=== PATIENT | female | born 1940 | race Caucasian/White ===

== ENCOUNTER 2021-12-05 16:00 | Outpatient (RCR) | payer MEDICARE, BC, SELFPAY ==
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
--- NOTE | 2021-12-02 08:40 | PCPTNOTE ---
Patient called & cancelled toady's and the rest of her scheduled appointment this date, stating she is feeling much better, doesn't feel she needs anymore therapy at this time.
--- NOTE | 2021-12-06 16:25 | BUPTOPDC ---
Assessment and note entered by Peggy Brasher PT Evaluation Information Assessment Status Discharge Subjective Information Reports resolution of vertigo Reported Pain Level Pain Score 0: Self Report Assessment PT Clinical Summary Pt reports resolution of vertigo symptoms. Initially pt discharged herself from therapy stating she was better and didn't need therapy any longer. PT called pt and pt agreed to come to final appointment for discharge testing, final HEP , and case wrap up. Pt reports cont R sided neck discomfort but that she is doing her exercises and using a massager for this. R Johnathon performed in clinic without symptoms and pt demonstrated R Johnathon with verbal cues from therapist. Print out of Johnathon instructions provided to pt and pt encouraged to return to therapy if she has a return of her symptoms or her neck discomfort returns/increases. Plan of Care Interventions Neuro Re-education
== END 2021-12-10 09:46 | disposition home or self-care (01) ==
LOC: ANHPT 16:00
PROVIDERS: PCP Internal Medicine; Visit Provider Otolaryngology
DX: R42 Dizziness and giddiness (principal)
CPT/HCPCS: 97110; 97112; 97140; 97161

== ENCOUNTER 2022-01-13 09:53 | Emergency (ER) | payer MEDICARE, BC, SELFPAY ==
--- NOTE | ~2022-01-13 | XR_ITS ---
EXAMINATION: XR chest 2V DATE: 01/13/2022 10:23 INDICATION: Shortness of breath and cough. TECHNIQUE: Frontal and lateral views of the chest were obtained. COMPARISON: Chest 2 views 07/02/2017, CT abdomen 01/13/2006 FINDINGS: Again seen is chronic lucency overlying the right mid and upper lung zones which may be sec ondary to chest wall asymmetry. No pneumonia, pleural effusion, or pneumothorax. The heart size is no rmal. There are surgical clips in right axilla. IMPRESSION: 1. No acute cardiopulmonary disease. Reviewed, dictated and finalized at location A.
[2022-01-13 10:01] VITALS: BP 186/73; PULSE 84; RESP 19; TEMP 37.4; O2SAT 97
--- NOTE | 2022-01-13 10:07 | ECG_ITS ---
Measurements Intervals [place] Rate: 86 P: 23 IA: 252 QRS: 6 QRSD: 84 T: -12 QT: 352 QTc: 421 Interpretive Statements SINUS RHYTHM WITH FIRST DEGREE AV BLOCK NONSPECIFIC ST & T-WAVE ABNORMALITY NO PREVIOUS ECG AVAILABLE FOR COMPARISON Electronically Signed On 01-13-2022 12:56:32 CDT by Aldair Albert M.D.
[2022-01-13 10:12] VITALS: PULSE 88; O2SAT 98
[2022-01-13 10:13] VITALS: O2SAT 97
--- NOTE | 2022-01-13 11:37 | ED.GENADULT ---
HPI - General Adult General Chief complaint: Shortness of Breath/Dyspnea Stated complaint: sob/cough Time Seen by Provider: 01/13/22 10:29 History of Present Illness HPI narrative: This is an 81-year-old female presenting ED for difficulty breathing. Patient has had a cough, sore throat, and some chest pain the last 2 days. She also had a cough that was productive of pink sputum which is what made her come to the ED. She describes the chest pain as an achy pain over the center of her chest, this nonradiating, minor in intensity and comes and goes. She has never experienced pain like this before there are exacerbating or alleviating factors. Occurs primarily when she coughs. She is not currently experiencing chest pain. Is not associated with diaphoresis, vomiting or exertion. Patient is vaccinated against COVID was not vaccinated against flu. She denies sick contacts at home. She denies nausea vomiting or diarrhea. Related Data Allergies Allergy/AdvReac Type Severity Reaction Status Date / Time No Known Allergies Allergy Mild Unverified 01/13/22 10:14 Review of Systems Review of Systems: CONSTITUTIONAL: Denies night sweats. EYES: No eye pain ENT: Denies rhinorrhea CARDIOVASCULAR: Denies palpitations RESPIRATORY: Denies hemoptysis GASTROINTESTINAL: Denies hematemesis GENITOURINARY: Denies hematuria. SKIN: Denies rash MUSCULOSKELETAL: Denies myalgia. NEUROLOGIC: Denies weakness. PSYCHIATRIC: Denies delusions [facility] Family History Family History Sibling Carcinoma of colon Family history of heart disease in male family member before age 55 Father Family history of heart disease in male family member before age 55 Other Family history of cardiovascular disease Family history of malignant neoplasm of male breast Social History Social History (Updated 01/13/22 @ 11:39 by Matthew Roberts MD) Social History: Denies alcohol cigarettes or drug use Smoking end date: 03/16/81 Alcohol intake: current Exam Narrative: APPEARANCE: No apparent distress. Head atraumatic. EYES: PERRLA/EOMI, NOSE: Normal no drainage NECK: Supple, Trachea midline RESPIRATORY: CTAB, No increased work of breathing. CARDIOVASCULAR: S1S2 appreciated, no peripheral edema ABDOMINAL: Soft, nontender, nondistended, MUSCULOSKELETAl: No obvious deformities NEURO: Alert. Moving 4/4 extremities SKIN:: Warm, dry. Normal color PSYCHIATRIC: Normal affect Course Vital Signs Vital signs: Vital Signs Temperature 99.3 F 01/13/22 10:01 Pulse Rate 84 01/13/22 10:01 Respiratory Rate 19 01/13/22 10:01 Blood Pressure 186/73 H 01/13/22 10:01 Pulse Oximetry 97 01/13/22 10:01 Oxygen Delivery Room Air 01/13/22 10:01 Temperature 99.3 F 01/13/22 10:01 Pulse Rate 84 01/13/22 12:28 Respiratory Rate 18 01/13/22 12:28 Blood Pressure 174/87 H 01/13/22 12:28 Pulse Oximetry 99 01/13/22 12:28 Oxygen Delivery Room Air 01/13/22 10:13 Medical Decision Making MDM Narrative Medical decision making narrative: This is a 81-year-old female presenting with a cough that is with productive pink sputum. Differential includes bronchitis, new onset heart failure, viral syndrome. Laboratory studies EKG and chest x-ray been ordered. EKG interpretation: Rhythm [sinus], Rate 86, Le[place] -[normal], ID -[normal], QRS [narrow], QTC [normal], T waves -[negative for concerning inversions], ST Segments - [Negative for concerning elevations] Final interpretations: [Normal Sinus Rhythm] chest x-ray was interpreted as no acute cardiopulmonary process. laboratory studies were significant for a BNP of 1000. Patient has no echocardiograms in her system. She has no history of heart failure that she is aware of. I recommended admission so she could obtain a echocardiogram be evaluated by Cardiology. The patient is not interested in admission is refused. She would lik
[2022-01-13 11:50] LABS: Basophils Percent Auto 0.4 % (0.2-1.2); Eosinophils Absolute Auto 0.1 K/mm3 (0-0.3); Eosinophils Percent Auto 1.3 % (0-4.4); Hemoglobin 13.8 g/dL (12.0-15.0); Immature Granulocyte Absolute 0.02 K/mm3 (0.00-0.031); Immature Granulocyte Percent A 0.3 % (0-0.5); Lymphocytes Absolute Auto 0.72 K/mm3 (0.9-3.2); Lymphocytes Percent Auto 10.1 % (18.3-44.2); Mean Corpuscular HGB Conc 32.9 g/dl (32-36); Mean Corpuscular Hemoglobin 31.3 pg (26-34); Mean Corpuscular Volume 95.2 fl (80-100); Mean Platelet Volume 11.4 fl (7.4-10.4); Monocytes Absolute Auto 0.7 K/mm3 (0.1-0.6); Monocytes Percent Auto 9.9 % (2.6-8.5); Neutrophils Absolute Auto 5.6 K/mm3 (1.3-6.7); Platelet Count Result 157 k/mm3 (150-375); Red Blood Count 4.41 M/mm3 (4.2-5.4); Red Cell Distribution Width 14.4 % (11.5-14.5); White Blood Count 7.2 K/mm3 (4.5-10.0)
[2022-01-13 12:01] LABS: Alanine Aminotransferase 19 U/L (6-35); Albumin Level 4.1 g/dL (3.5-5.1); Alkaline Phosphatase 75 U/L (38-126); Anion Gap 13 mmol/L (8-16); Aspartate Amino Transferase 29 U/L (14-36); Bilirubin,Total 1.4 mg/dL (0.2-1.3); Blood Urea Nitrogen 12 mg/dL (7-17); Calcium 8.7 mg/dL (8.4-10.2); Carbon Dioxide 28 mmol/L (22-30); Chloride 102 mmol/L (98-107); Estimated CRCL calculation 71 ml/min; Estimated Glomerular Filt Rate > 60; Glucose 96 mg/dL (65-110); Potassium 3.4 mmol/L (3.4-5.0); Sodium 143 mmol/L (137-145)
[2022-01-13 12:20] LABS: NT Pro B Type Natriuretic Pept 1070 pg/mL (5-100); Troponin I < 0.012 ng/mL (0.000-0.034)
[2022-01-13 12:28] VITALS: BP 174/87; PULSE 84; RESP 18; O2SAT 99
[2022-01-13 12:43] LABS: Influenza A QL RT-PCR Negative (Negative); Influenza B QL RT-PCR Negative (Negative); SARS-CoV-2 RNA PCR Negative
[2022-01-13 13:46] VITALS: BP 165/70; PULSE 80; RESP 18; O2SAT 97
[2022-01-13 13:46] LABS: Troponin I < 0.012 ng/mL (0.000-0.034)
== END 2022-01-13 13:48 | disposition left against medical advice (07) ==
PROVIDERS: Emergency Provider Emergency Medicine; PCP Internal Medicine
DX: I25.10 Atherosclerotic heart disease of native coronary artery without angina pectoris (principal); I10 Essential (primary) hypertension; Z20.822 Contact with and (suspected) exposure to COVID-19; Z87.891 Personal history of nicotine dependence
CPT/HCPCS: 36415; 71046; 80053; 83880; 84484; 85025; 87502; 93005; 99284; U0003; U0005

== ENCOUNTER 2022-11-19 07:58 | Outpatient (CLI) | payer MEDICARE, BC, SELFPAY ==
--- NOTE | ~2022-11-19 | US_ITS ---
EXAMINATION: US retroperitoneal duplex ltd DATE: 11/19/2022 09:12 INDICATION: hypertension TECHNIQUE: Multiple grayscale, color Doppler, and pulsed Doppler images of the kidneys and renal arabella ramirez were obtained. COMPARISON: None. FINDINGS: The aorta peak systolic velocity is 87 cm/s. The right renal artery peak systolic velocity is 119 cm/ s in the proximal segment, 107 cm/s in the mid segment, and 94 cm/s in the distal segment. Incidental 1.6 cm anechoic cyst at the right kidney. The left renal artery peak systolic velocity is 147 cm/s i n the proximal segment, 141 cm/s in the mid segment, and 156 cm/s in the distal segment. IMPRESSION: 1. No Doppler evidence of renal artery stenosis. Reviewed, dictated and finalized at location A.
--- NOTE | ~2022-11-19 | US_ITS ---
EXAMINATION: US carotid duplex BI DATE: 11/19/2022 09:13 INDICATION: Right carotid bruit TECHNIQUE: Grayscale, color Doppler, and pulsed Doppler images of the cervical carotid arteries were obtained. The degree of vessel stenosis is placed in one of the following categories: normal, <50%, 5 0-69%, >=70% but less than near-occlusion, near-occlusion, or total occlusion. Note that percent sten osis relative to normal distal artery lumen diameter is indirectly measured from velocity measurement s as described by Canelo, et al. Radiology 2003; 229:340-346. COMPARISON: None. FINDINGS: RIGHT: The right common carotid artery (CCA) peak systolic velocity (PSV) is 56 cm/s. The right internal car otid artery (ICA) PSV is 63 cm/s. The right ICA end-diastolic velocity (EDV) is 12 cm/s. The right IC A/CCA PSV ratio is 1.1. Grayscale and color Doppler images yield an estimate of <50% diameter reducti on from plaque in the ICA. The external carotid artery (ECA) PSV is 89 cm/s. There is antegrade flow in the right vertebral artery. LEFT: The left CCA PSV is 74 cm/s. The left ICA PSV is 77 cm/s. The left ICA EDV is 12 cm/s. The left ICA/C CA PSV ratio is 1.0. Grayscale and color Doppler images yield an estimate of <50% diameter reduction from plaque in the ICA. The ECA PSV is 56 cm/s. There is antegrade flow in the left vertebral artery. IMPRESSION: 1. <50% stenosis in the right internal carotid artery. 2. <50% stenosis in the left internal carotid artery. Reviewed, dictated and finalized at location A.
== END 2022-11-19 07:59 | disposition home or self-care (01) ==
PROVIDERS: PCP Internal Medicine; Visit Provider Internal Medicine Cardiovascular Disease
DX: H93.A3 Pulsatile tinnitus, bilateral (principal); R94.39 Abnormal result of other cardiovascular function study; R68.84 Jaw pain; R09.89 Other specified symptoms and signs involving the circulatory and respiratory systems; R00.2 Palpitations; Z87.891 Personal history of nicotine dependence; E78.5 Hyperlipidemia, unspecified; I25.10 Atherosclerotic heart disease of native coronary artery without angina pectoris; Z13.6 Encounter for screening for cardiovascular disorders; I65.23 Occlusion and stenosis of bilateral carotid arteries
CPT/HCPCS: 93880; 93976

== ENCOUNTER 2023-08-03 12:23 | Outpatient (CLI) | payer MEDICARE, BC, SELFPAY ==
--- NOTE | ~2023-08-03 | DEXA_ITS ---
Bone Density Report Name: GIANLUCA GONSALVES Age: 82 Sex: Female Ethnicity: White Date of : 1940 Indication: osteopenia; height loss; prior fracture; cancer; asthma or emphysema; Referring Provider: MARIA GUADALUPE, SANTY [place] Study: Bone densitometry was performed. Exam Date: August 03, 2023 Accession number: [id number] Bone Density: Region BMD T-score Z-score Classification AP Spine(L1, L2, L3) 0.973 -0.4 2.3 Normal Femoral Neck (Left) 0.567 -2.5 -0.1 Osteoporosis Total Hip (Left) 0.778 -1.3 0.9 Osteopenia Femoral Neck (Right) 0.498 -3.2 -0.7 Osteoporosis Total Hip (Right) 0.685 -2.1 0.1 Osteopenia Total Hip Mean 0.732 -1.7 0.5 Osteopenia World Health Organization criteria for BMD impression classify patients as: Normal (T-score at or above -1.0), Osteopenia (T-score between -1.0 and -2.5), or Osteoporosis (T-score at or below -2.5). 10-year Fracture Risk: FRAX not reported because: Some T-score for Spine Total or Hip Total or Femoral Neck at or below -2.5 Prior hip or vertebral fracture Previous Exams: Region Exam Age BMD T-score BMD Change BMD Change Date g/cm2 vs Baseline vs Previous AP Spine (L1-L3) 08/03/2023 82 0.973 -0.4 -0.030 (-3.0%) -0.047 (-4.6%) 12/11/2017 77 1.020 0.0 0.017 (1.7%)# -0.007 (-0.7%) 12/06/2015 75 1.027 0.1 0.025 (2.4%)# 0.025 (2.4%)# 07/29/2012 71 1.003 -0.1 Total Hip(Left) 08/03/2023 82 0.778 -1.3 -0.059 (-7.1%) -0.024 (-3.0%) 12/11/2017 77 0.802 -1.1 -0.036 (-4.2%) -0.025 (-3.0%) 12/06/2015 75 0.826 -0.9 -0.011 (-1.3%) -0.011 (-1.3%) 07/29/2012 71 0.837 -0.9 Total Hip(Right) 08/03/2023 82 0.685 -2.1 -0.023 (-3.2%) -0.028 (-3.9%) 12/11/2017 77 0.713 -1.9 0.005 (0.8%)# -0.019 (-2.5%) 12/06/2015 75 0.732 -1.7 0.024 (3.4%)# 0.024 (3.4%)# 07/29/2012 71 0.708 -1.9 *Denotes significance at 95% confidence level, LSC for AP Spine = 0.022 g/cm2, LSC for Total Hip = 0.027 g/cm2 # Denotes dissimilar scan types or analysis methods Clinical Information Provided by Patient: Have had a previous hip or vertebral fracture Has had a low trauma fracture Has used the following medications: Vitamin D Has the following medical conditions: Asthma or Emphysema, Cancer Patient maximum height was 68.0 Menopause Age: 39 No regular weight bearing exercise Drinks caffeinated beverages Onset of menses at age 13 Number of children 3 Impression: The aureliano
== END 2023-08-03 12:24 | disposition home or self-care (01) ==
LOC: ANHIMG 12:25
PROVIDERS: PCP Internal Medicine; Visit Provider Internal Medicine
DX: Z78.0 Asymptomatic menopausal state (principal); M85.89 Other specified disorders of bone density and structure, multiple sites; M81.0 Age-related osteoporosis without current pathological fracture
CPT/HCPCS: 77080